=== PATIENT | female | born 1990 | race Caucasian/White ===

== ENCOUNTER 2020-03-31 15:59 | Emergency (ER) | payer OTHER ==
[2020-03-31 16:19] VITALS: BMI 31.2
[2020-03-31] MEDS ORDERED: DEXAMETHASONE SOD PHOSPHATE 10 MG/1 ML VIAL IM ONE (17:13)
[2020-03-31] MEDS ORDERED: DEXAMETHASONE SOD PHOSPHATE 10 MG/1 ML VIAL ONE (17:16)
[2020-03-31 18:37] VITALS: BP 129/78; PULSE 82; TEMP 98
== END 2020-03-31 20:05 | disposition home or self-care (01) ==
LOC: JER 15:59
PROC: 3E0233Z Introduction of Anti-inflammatory into Muscle, Percutaneous Approach (ICD-10-PCS; principal; 2020-03-31)
DX: T78.40XA Allergy, unspecified, initial encounter (principal)
CPT/HCPCS: 99284-25; J1100

== ENCOUNTER 2020-04-20 16:04 | Inpatient (IN) | payer OTHER ==
[2020-04-20 19:58] LABS: BASO % 0.4 % (0-2.0); EOS % 0.1 % (0-4.5); HEMOGLOBIN 12.3 GM/dL (10.7-15.3); MCH 30.4 pg (25.7-33.7); MCHC 34.3 g/dl (32.0-36.0); MEAN CELL VOLUME 88.7 fl (80-96); MONO % 8.8 % (3.8-10.2); NEUT % 70.7 % (42.8-82.8); RBC 4.05 M/mm3 (3.60-5.2); RDW 14.6 % (11.6-15.6); WHITE BLOOD COUNT 6.4 K/mm3 (4.0-10.0)
[2020-04-20] MEDS: ELECTROLYTE-148 SOLN 1,000 ML IV SCH (20:00)
[2020-04-20] MEDS ORDERED: BUTORPHANOL TARTRATE 1 MG/ML VIAL IVPB PRN (20:02)
[2020-04-20] MEDS ORDERED: BUTORPHANOL TARTRATE 2 MG/ML VIAL IVPB PRN (20:02)
[2020-04-20] MEDS ORDERED: PROMETHAZINE HCL 25 MG/1 ML VIAL IVPUSH ONE (20:02)
[2020-04-20 20:05] LABS: INR 0.91 (0.83-1.09)
[2020-04-20] MEDS ORDERED: OXYTOCIN 30 UNITS in 0.9% NS 30 UNIT/500 ML INFUS.BAG IVPB SCH (20:15)
[2020-04-20 20:17] LABS: POTASSIUM 4.6 mmol/L (3.5-5.1)
[2020-04-20 20:20] LABS: CALCIUM 8.9 mg/dL (8.5-10.1)
[2020-04-20 20:21] LABS: BLOOD UREA NITROGEN 8.4 mg/dL (7-18)
[2020-04-20 20:22] VITALS: BMI 30.9
[2020-04-20 20:24] LABS: CREATININE 0.8 mg/dL (0.55-1.3)
[2020-04-20] MEDS ORDERED: AMPICILLIN SODIUM 2 GM VIAL ONE (20:29)
[2020-04-20] MEDS ORDERED: AMPICILLIN SODIUM 2 GM VIAL IVPB ONE (20:30)
[2020-04-20] MEDS ORDERED: OXYTOCIN 30 UNITS in 0.9% NS 30 UNIT/500 ML INFUS.BAG IVPB ONE (20:30)
[2020-04-20] MEDS ORDERED: SODIUM CHLORIDE 100 ML IVPB ONE (20:32)
[2020-04-20 21:15] LABS: HIV INTERPRETATION NEGATIVE (NEGATIVE)
[2020-04-20] MEDS ORDERED: PCA PUMP NR ONE (21:29)
[2020-04-20] MEDS ORDERED: FENTANYL/BUPIVACAINE/NS/PF - PCEA - 50 ML DISP.SYRIN EP ONE (21:29)
[2020-04-20] MEDS ORDERED: NALOXONE HCL 0.4 MG/ML VIAL IVPUSH PRN (21:33)
[2020-04-20] MEDS ORDERED: BUPIVACAINE HCL/PF 0.25% (2.5MG/ML) 10 ML VIAL ONE (21:37)
[2020-04-20 21:59] LABS: PLATELET ESTIMATE DECREASED
[2020-04-20 22:06] LABS: PLATELET COUNT 161 K/MM3 (134-434)
[2020-04-20 22:07] LABS: MEAN PLT VOLUME 11.7 fl (7.5-11.1)
[2020-04-20] MEDS: FENTANYL/BUPIVACAINE/NS/PF - PCEA - 50 ML DISP.SYRIN EP SCH (22:10)
[2020-04-21] MEDS ORDERED: AMPICILLIN SODIUM 1 GM VIAL ONE ×4 (00:17→12:36)
[2020-04-21] MEDS: AMPICILLIN SODIUM 1 GM VIAL IVPB SCH ×4 (00:30→12:38)
[2020-04-21] MEDS: LABETALOL HCL 200 MG TABLET (FP) PO SCH ×2 (01:00→10:15)
[2020-04-21] MEDS ORDERED: LABETALOL HCL 200 MG TABLET (FP) ONE ×2 (01:03→02:52)
[2020-04-21] MEDS ORDERED: FENTANYL/BUPIVACAINE/NS/PF - PCEA - 50 ML DISP.SYRIN EP ONE ×4 (01:30→10:45)
[2020-04-21 01:36] LABS: RETICULOCYTES 1.97 % (0.5-1.5)
[2020-04-21 01:59] LABS: URIC ACID 5.6 mg/dL (2.6-7.2)
[2020-04-21] MEDS ORDERED: BUPIVACAINE HCL/PF 0.25% (2.5MG/ML) 10 ML VIAL ONE (02:11)
[2020-04-21 02:53] LABS: EPI CELLS >36 /uL (0-25.1); HYALINE CASTS 3 /uL (0-3.1); URINE APPEARANCE CLEAR; URINE BACTERIA 878 /uL (0-1359); URINE BILIRUBIN 1+ (NEGATIVE); URINE COLOR DK YELLOW; URINE GLUCOSE (UA) NEGATIVE (NEGATIVE); URINE KETONE TRACE (NEGATIVE); URINE LEUK ESTERASE NEGATIVE (NEGATIVE); URINE NITRITE NEGATIVE (NEGATIVE); URINE PROTEIN 2+ (NEGATIVE); URINE WBC 20 /uL (0-25.8)
[2020-04-21] MEDS ORDERED: LABETALOL HCL 200 MG TABLET (FP) PO STA (02:57)
[2020-04-21] MEDS ORDERED: MAGNESIUM 4GM/H20 - 4 GM/100 ML IVPB IVPB ONE ×2 (03:00→03:07)
[2020-04-21] MEDS ORDERED: MAGNESIUM SULFATE 20GM/500ML - 20 GM/500 ML INFUS.BAG ONE ×2 (03:40→13:28)
[2020-04-21] MEDS: MAGNESIUM SULFATE 20GM/500ML - 20 GM/500 ML INFUS.BAG IVPB SCH ×2 (03:50→13:30)
[2020-04-21] MEDS ORDERED: OXYTOCIN 20 UNITS in 0.9% NS 20 UNIT/1,000 ML INFUS.BAG IV ONE ×2 (06:38→18:17)
[2020-04-21] MEDS: ELECTROLYTE-148 SOLN 1,000 ML IV SCH (08:00)
[2020-04-21] MEDS ORDERED: METHYLERGONOVINE MALEATE 0.2 MG/1 ML AMP IM PRN (15:39)
[2020-04-21] MEDS ORDERED: BENZOCAINE 28 GM HEMORRHOIDAL OINTMENT TP PRN (15:39)
[2020-04-21] MEDS ORDERED: WITCH HAZEL 50% (TUCKS) 40 PAD/JAR PAD TP PRN (15:39)
[2020-04-21] MEDS ORDERED: ACETAMINOPHEN 325 MG TABLET (FP) PO PRN (15:39)
[2020-04-21] MEDS ORDERED: BENZOCAINE 20% 57 GM BOTTLE TP PRN (15:39)
[2020-04-21] MEDS ORDERED: BISACODYL 10 MG SUPP.RECT RC PRN (15:39)
[2020-04-21] MEDS ORDERED: OXYTOCIN 20 UNITS in 0.9% NS 1000 ML INFUS.BAG IV ONE (17:52)
[2020-04-21] MEDS ORDERED: MAGNESIUM SULFATE 20GM/500ML - 20 GM/500 ML INFUS.BAG IVPB SCH (18:45)
[2020-04-22] MEDS ORDERED: OXYTOCIN 20 UNITS in 0.9% NS 20 UNIT/1,000 ML INFUS.BAG IV ONE (03:55)
[2020-04-22] MEDS ORDERED: OXYTOCIN 20 UNITS in 0.9% NS 1000 ML INFUS.BAG IV ONE (03:58)
[2020-04-22] MEDS ORDERED: OXYTOCIN 20 UNITS in 0.9% NS 20 UNIT/1,000 ML INFUS.BAG IV SCH (04:15)
[2020-04-22] MEDS ORDERED: MAGNESIUM 1GM/D5W - 1 GM/100 ML IVPB IVPB ONE (06:02)
[2020-04-22] MEDS ORDERED: LABETALOL HCL 100 MG TABLET (FP) ONE (07:47)
[2020-04-22] MEDS ORDERED: LABETALOL HCL 100 MG TABLET (FP) PO PRN (07:49)
[2020-04-22 09:01] LABS: BASO % 0.3 % (0-2.0); EOS % 0.1 % (0-4.5); HEMATOCRIT 26.1 % (32.4-45.2); HEMOGLOBIN 8.9 GM/dL (10.7-15.3); MCH 30.5 pg (25.7-33.7); MEAN CELL VOLUME 89.7 fl (80-96); MEAN PLT VOLUME 10.6 fl (7.5-11.1); MONO % 9.5 % (3.8-10.2); NEUT % 76.1 % (42.8-82.8); PLATELET COUNT 154 K/MM3 (134-434); RBC 2.91 M/mm3 (3.60-5.2); RDW 15.3 % (11.6-15.6)
[2020-04-22 09:21] LABS: MAGNESIUM 4.7 mg/dL (1.8-2.4)
[2020-04-22] MEDS: FENTANYL/BUPIVACAINE/NS/PF - PCEA - 50 ML DISP.SYRIN EP SCH (16:33)
[2020-04-22] MEDS: ELECTROLYTE-148 SOLN 1,000 ML IV SCH ×2 (16:33→20:38)
[2020-04-22] MEDS: IBUPROFEN 600 MG TABLET (FP) PO PRN (20:41)
[2020-04-22] MEDS ORDERED: SENNOSIDES/DOCUSATE COMBO (SENNA PLUS) TABLET (UD) PO PRN (22:00)
[2020-04-23] MEDS: IBUPROFEN 600 MG TABLET (FP) PO PRN (10:24)
[2020-04-23 12:16] VITALS: BP 132/84; PULSE 97; TEMP 98
== END 2020-04-23 13:15 | disposition home or self-care (01) | DRG 560 ==
LOC: JDEL 16:04 → JLDR 17:00 → J3W 04-22 07:36
PROVIDERS: ADMIT Specialist; ATTEND Specialist
PROC: 10D07Z6 Extraction of Products of Conception, Vacuum, Via Natural or Artificial Opening (ICD-10-PCS; principal; 2020-04-21)
PROC: 0W8NXZZ Division of Female Perineum, External Approach (ICD-10-PCS; 2020-04-21)
DX: O14.94 Unspecified pre-eclampsia, complicating childbirth (principal); O75.81 Maternal exhaustion complicating labor and delivery; R94.5 Abnormal results of liver function studies; Z3A.37 37 weeks gestation of pregnancy; Z37.0 Single live birth
CPT/HCPCS: 36415; 59409; 80048; 81003; 82977; 83010; 83735; 84450; 84460; 84550; 85025; 85032; 85045; 85610; 85730; 86780; 86850; 86900; 86901; 87389; C9803; U0003